=== PATIENT | female | born 1955 | race Caucasian/White ===

== ENCOUNTER → 2024-01-04 | Day surgery (SDC) | payer OTHER ==
[2024-01-03 13:19] LABS: Basophils # (auto) 0 10 ^3/uL (0-0.2); Basophils % (auto) 0.6 % (0.0-2.0); Eosinophils # (auto) 0.2 10 ^3/uL (0-0.8); Eosinophils % (auto) 2.8 % (0.0-7.0); Hematocrit 40.2 % (36.0-46.0); Lymphocytes # (auto) 0.9 10 ^3/uL (0.4-5.4); Lymphocytes % (auto) 12.5 % (10.0-50.0); Mean Corpuscular Hemoglobin 32.3 pg (28.0-32.0); Mean Corpuscular Hgb Conc. 34.8 g/dL (32.0-36.0); Mean Corpuscular Volume 92.8 fL (80.0-100.0); Monocytes # (auto) 0.4 10 ^3/uL (0-1.3); Monocytes % (auto) 5.7 % (0.0-12.0); Neutrophils # (auto) 5.5 10 ^3/uL (1.6-8.6); Neutrophils % (auto) 78.4 % (37.0-80.0); Nucleated Red Blood Cells % 0.1 %; Platelet Count (auto) 165 10^3/uL (140-450); Red Blood Cells 4.33 10^6/uL (4.0-5.20); Red Cell Distribution Width 13.9 % (11.8-14.3)
[2024-01-03 13:26] LABS: INR 0.97 (0.9-1.15); Partial Thromboplastin Time 27.4 SEC (24.5-34.5); Prothrombin Time 10.3 sec (9.3-11.8)
[2024-01-03 13:27] LABS: Alanine Aminotransferase 10 U/L (7-40); Albumin 4.5 g/dL (3.2-4.8); Alkaline Phosphatase 69 U/L (46-116); Anion Gap 5 (5-15); Aspartate Aminotransferase 11 U/L (13-40); Bilirubin, Total 0.4 mg/dL (0.2-1.0); Blood Urea Nitrogen 26 mg/dL (9-23); Carbon Dioxide 27 mmol/L (20-30); Chloride 107 mmol/L (98-107); Glucose 131 mg/dL (74-106); Sodium 139 mmol/L (136-145); Total Protein 7.6 g/dL (5.7-8.2)
[~2024-01-04] VITALS: Ht 160 cm; Wt 104.3 kg
[~2024-01-04] MED LIST: APIX2.5T PO; BUPIVACAINE 0.25% INJ 50ML VIAL ONE; BUPIVACAINE 0.5% P/F INJ 10 ML VIAL ONE; FAMOTIDINE (10MG/ML) 2ML VL IV ONE; GLYCOPYRROLATE 0.2 MG/ML 1ML VIAL ONE; HYDR12.59 PO; HYDROCORTISONE SOD SUCC 100 MG/2ML INJ VIAL ONE; IBUP-1453 PO; KETAMINE 50mg/ML 1ml syringe ONE; METF-370 PO; MIDAZOLAM HCL 2MG/2ML 2ml VIAL (1mg/ml) ONE; MORPHINE SULF PF 5 MG/10 ML VIAL ONE; ONDANSETRON HCL 4 MG/2 ML VIAL ONE; PHENYLEPHRINE HCL 10 MG/ML VL ONE; PROPOFOL 10 MG/ML 20 ML IV ONE; SITA25TA3 PO; TRANEXAMIC ACID 0 ML ONE; TRAZ-227 PO; VANCOMYCIN HCL 1000 MG VL ONE; ePHEDrine SULFATE 50 MG/ML AMP ONE; fentaNYL CITRATE 100 MCG/2 ML VL ONE
[2024-01-04 09:51] LABS: Urine Bacteria MOD /hpf (None Seen); Urine Blood Negative /uL (Negative); Urine Clarity Turbid (Clear); Urine Color Colorless (Yellow); Urine Protein, UAD Negative (Negative); Urine Specific Gravity 1.017 (1.001-1.035); Urine Urobilinogen Normal (Negative); Urine WBC 3 /hpf (0 - 5); Urine pH 5.5 (5.0-9.0)
== END | disposition home or self-care (01) ==
LOC: SUR 06:11
PROVIDERS: ATTEND Orthopaedic Surgery
DX: M17.12 Unilateral primary osteoarthritis, left knee (principal); Z53.8 Procedure and treatment not carried out for other reasons; I10 Essential (primary) hypertension; F17.210 Nicotine dependence, cigarettes, uncomplicated; E11.9 Type 2 diabetes mellitus without complications; E78.5 Hyperlipidemia, unspecified; Z98.890 Other specified postprocedural states; Z90.710 Acquired absence of both cervix and uterus; Z85.41 Personal history of malignant neoplasm of cervix uteri; Z82.49 Family history of ischemic heart disease and other diseases of the circulatory system; Z83.3 Family history of diabetes mellitus; Z88.8 Allergy status to other drugs, medicaments and biological substances; Z79.84 Long term (current) use of oral hypoglycemic drugs; Z79.899 Other long term (current) drug therapy
CPT/HCPCS: 36415; 80053; 81001; 85025; 85610; 85730; 86850; 86900; 86901; J1720; J2371; J2405; J2704; J3490; J2250

== ENCOUNTER 2024-01-14 15:40 | Inpatient (IN) | payer OTHER ==
[~2024-01-14] VITALS: Ht 177.8 cm; Wt 110.1 kg
[~2024-01-14 15:40] MED LIST changes: -BUPIVACAINE 0.25% INJ 50ML VIAL ONE; -BUPIVACAINE 0.5% P/F INJ 10 ML VIAL ONE; -FAMOTIDINE (10MG/ML) 2ML VL IV ONE; -GLYCOPYRROLATE 0.2 MG/ML 1ML VIAL ONE; -HYDROCORTISONE SOD SUCC 100 MG/2ML INJ VIAL ONE; -KETAMINE 50mg/ML 1ml syringe ONE; -MIDAZOLAM HCL 2MG/2ML 2ml VIAL (1mg/ml) ONE; -MORPHINE SULF PF 5 MG/10 ML VIAL ONE; -ONDANSETRON HCL 4 MG/2 ML VIAL ONE; -PHENYLEPHRINE HCL 10 MG/ML VL ONE; -PROPOFOL 10 MG/ML 20 ML IV ONE; -TRANEXAMIC ACID 0 ML ONE; -VANCOMYCIN HCL 1000 MG VL ONE; -ePHEDrine SULFATE 50 MG/ML AMP ONE; -fentaNYL CITRATE 100 MCG/2 ML VL ONE
[2024-01-14 15:55] VITALS: PULSE 83; RESP 20; O2SAT 100
[2024-01-14 16:33] LABS: Basophils # (auto) 0 10 ^3/uL (0-0.2); Basophils % (auto) 0.1 % (0.0-2.0); Eosinophils # (auto) 0 10 ^3/uL (0-0.8); Eosinophils % (auto) 0.1 % (0.0-7.0); Hematocrit 41.8 % (36.0-46.0); Hemoglobin 14.1 g/dL (12.2-16.2); Lymphocytes # (auto) 0.6 10 ^3/uL (0.4-5.4); Mean Corpuscular Hemoglobin 32.2 pg (28.0-32.0); Mean Corpuscular Hgb Conc. 33.8 g/dL (32.0-36.0); Mean Corpuscular Volume 95.2 fL (80.0-100.0); Monocytes # (auto) 0.6 10 ^3/uL (0-1.3); Monocytes % (auto) 5.4 % (0.0-12.0); Neutrophils # (auto) 10.8 10 ^3/uL (1.6-8.6); Neutrophils % (auto) 89.4 % (37.0-80.0); Platelet Count (auto) 154 10^3/uL (140-450); Red Blood Cells 4.39 10^6/uL (4.0-5.20); Red Cell Distribution Width 14.3 % (11.8-14.3); White Blood Cell 12.1 10^3/uL (4.4-10.8)
[2024-01-14 16:47] LABS: INR 1.08 (0.9-1.15); Partial Thromboplastin Time 27.9 SEC (24.5-34.5); Prothrombin Time 11.4 sec (9.3-11.8)
[2024-01-14 17:03] LABS: Alanine Aminotransferase 11 U/L (7-40); Alkaline Phosphatase 74 U/L (46-116); Anion Gap 15 (5-15); Aspartate Aminotransferase 21 U/L (13-40); Blood Alcohol < 3.0 mg/dL (<10); Blood Urea Nitrogen 13 mg/dL (9-23); Calcium 9.4 mg/dL (8.7-10.4); Carbon Dioxide 17 mmol/L (20-31); Chloride 110 mmol/L (98-107); Glucose 121 mg/dL (74-106); Magnesium 1.9 mg/dL (1.6-2.6); Potassium 4.1 mmol/L (3.5-5.1); Sodium 142 mmol/L (136-145)
[2024-01-14 17:04] LABS: Bilirubin, Total 0.6 mg/dL (0.2-1.0)
[2024-01-14 17:11] LABS: Lactic Acid w/Reflex 2.7 mmol/L (0.4-2.0)
[2024-01-14 17:14] LABS: Urine Bacteria MANY /hpf (None Seen); Urine Blood 2+ /uL (Negative); Urine Clarity Ex.Turbid (Clear); Urine Color Light-Orange (Yellow); Urine Mucus FEW (None Seen); Urine Protein, UAD 2+ (Negative); Urine Specific Gravity 1.027 (1.001-1.035); Urine Urobilinogen 3 mg/dL (Negative); Urine WBC 24 /hpf (0 - 5)
[2024-01-14 17:24] LABS: Amphetamine Screen, Urine Neg (NEGATIVE); Benzodiazephine Screen, Urine Neg (NEGATIVE)
[2024-01-14 17:25] LABS: Barbiturate Scree,Urine Neg (NEGATIVE); Cannabinoid Screen, Urine Neg (NEGATIVE); Cocaine Screen, Urine Neg (NEGATIVE); Opiate Scree,Urine Neg (NEGATIVE); Phencyclidine Screen, Urine Neg (NEGATIVE)
[2024-01-14] MEDS: SODIUM CHLORIDE 0.9% 1,000 ML IV ONE (17:31)
[2024-01-14] MEDS: cefTRIAXone 1GM/50ML D5W 50 ML IV ONE (17:31)
[2024-01-14 20:00] VITALS: PULSE 94; RESP 21; O2SAT 96
[2024-01-14] MEDS ORDERED: ACETAMINOPHEN 325 MG TAB PO PRN (21:15)
[2024-01-14] MEDS ORDERED: HYDROcodone-ACET 5/325MG TAB PO PRN (21:15)
[2024-01-14] MEDS ORDERED: ONDANSETRON HCL 4 MG/2 ML VIAL IV PRN (21:15)
[2024-01-14] MEDS ORDERED: DOCUSATE SOD 100 MG CAP PO PRN (21:15)
[2024-01-14] MEDS ORDERED: DEXTROSE (50%) 50ML SYRG IV PRN (21:15)
[2024-01-14] MEDS ORDERED: NITROGLYCERIN 0.4 MG SL TAB SL PRN (22:00)
[2024-01-14] MEDS: APIXABAN 2.5 MG TAB PO SCH (22:00)
[2024-01-14] MEDS ORDERED: MORPHINE SULFATE INJ 2 MG/ml SYRG IV PRN (22:00)
[2024-01-14] MEDS: SODIUM CHLOR 0.9% PF (SALINE LOCK) 10ML VIAL/SYR IV SCH (22:22)
[2024-01-14] MEDS: LACTATED RINGER'S 500 ML IV ONE (22:29)
[2024-01-15] MEDS: InsuLIN REG 1unit/0.01ml Soln (100units/ml) SC SCH
[2024-01-15] MEDS: ACCU-CHEK COMFORT CURVE STRIP VI SCH (00:15)
[2024-01-15] MEDS: hydrALAZINE HCL 20 MG/ML VL IV PRN (03:30)
[2024-01-15 04:51] LABS: Basophils # (auto) 0 10 ^3/uL (0-0.2); Basophils % (auto) 0.4 % (0.0-2.0); Eosinophils # (auto) 0.1 10 ^3/uL (0-0.8); Eosinophils % (auto) 0.9 % (0.0-7.0); Hematocrit 41.3 % (36.0-46.0); Hemoglobin 14.2 g/dL (12.2-16.2); Lymphocytes # (auto) 0.8 10 ^3/uL (0.4-5.4); Mean Corpuscular Hemoglobin 31.8 pg (28.0-32.0); Mean Corpuscular Hgb Conc. 34.4 g/dL (32.0-36.0); Mean Corpuscular Volume 92.4 fL (80.0-100.0); Monocytes # (auto) 0.5 10 ^3/uL (0-1.3); Monocytes % (auto) 5.8 % (0.0-12.0); Neutrophils # (auto) 7.7 10 ^3/uL (1.6-8.6); Neutrophils % (auto) 83.9 % (37.0-80.0); Nucleated Red Blood Cells % 0.1 %; Platelet Count (auto) 174 10^3/uL (140-450); Red Blood Cells 4.47 10^6/uL (4.0-5.20); White Blood Cell 9.2 10^3/uL (4.4-10.8)
[2024-01-15 05:21] LABS: Alanine Aminotransferase 12 U/L (7-40); Albumin 3.8 g/dL (3.2-4.8); Alkaline Phosphatase 74 U/L (46-116); Anion Gap 15 (5-15); Aspartate Aminotransferase 21 U/L (13-40); BUN/Creatinine Ratio 20.4 (10.0-20.0); Bilirubin, Total 0.6 mg/dL (0.2-1.0); Blood Urea Nitrogen 21 mg/dL (9-23); Calcium 9.5 mg/dL (8.7-10.4); Carbon Dioxide 16 mmol/L (20-31); Chloride 112 mmol/L (98-107); Glucose 126 mg/dL (74-106); Potassium 3.8 mmol/L (3.5-5.1); Sodium 143 mmol/L (136-145); Total Protein 6.3 g/dL (5.7-8.2)
[2024-01-15] MEDS: cefTRIAXone 1GM/50ML D5W 50 ML IV SCH (09:05)
[2024-01-15] MEDS: ENOXAPARIN SOD 40 MG/0.4 ML SYRINGE SC ONE (14:06)
[2024-01-15] MEDS: ASPirin 325 MG TAB PO ONE (15:20)
[2024-01-15 19:25] VITALS: PULSE 84; RESP 20; O2SAT 96
[2024-01-15 21:00] VITALS: BP 156/70; PULSE 86; RESP 18; TEMP 98.3; O2SAT 97
[2024-01-15] MEDS: ATORVASTATIN 20 MG TAB PO SCH (22:41)
[2024-01-15 22:42] VITALS: PULSE 86; RESP 18; O2SAT 97
[2024-01-15] MEDS: ENOXAPARIN SOD 40 MG/0.4 ML SYRINGE SC SCH (22:42)
[2024-01-15] MEDS ORDERED: EMPA1TAB PO (23:16)
[2024-01-15] MEDS ORDERED: [UNRECOGNIZED DRUG - CODE] PO (23:16)
[2024-01-15] MEDS ORDERED: FENO54TA4 PO (23:16)
[2024-01-16] VITALS (7 sets, daily range): BP systolic 145–154; BP diastolic 37–81; PULSE 63–90; RESP 17–22; TEMP 98.1–99.9; O2SAT 91–97
[2024-01-16 08:07] LABS: Basophils # (auto) 0 10 ^3/uL (0-0.2); Basophils % (auto) 0.4 % (0.0-2.0); Eosinophils # (auto) 0.2 10 ^3/uL (0-0.8); Eosinophils % (auto) 2.6 % (0.0-7.0); Hematocrit 38.7 % (36.0-46.0); Hemoglobin 13.4 g/dL (12.2-16.2); Lymphocytes # (auto) 0.7 10 ^3/uL (0.4-5.4); Mean Corpuscular Hemoglobin 32.3 pg (28.0-32.0); Mean Corpuscular Hgb Conc. 34.6 g/dL (32.0-36.0); Mean Corpuscular Volume 93.4 fL (80.0-100.0); Monocytes # (auto) 0.4 10 ^3/uL (0-1.3); Monocytes % (auto) 5.7 % (0.0-12.0); Neutrophils # (auto) 5.5 10 ^3/uL (1.6-8.6); Neutrophils % (auto) 81.3 % (37.0-80.0); Nucleated Red Blood Cells % 0.2 %; Platelet Count (auto) 167 10^3/uL (140-450); Red Blood Cells 4.15 10^6/uL (4.0-5.20); Red Cell Distribution Width 14.1 % (11.8-14.3); White Blood Cell 6.8 10^3/uL (4.4-10.8)
[2024-01-16 08:09] LABS: Anion Gap 12 (5-15); Carbon Dioxide 20 mmol/L (20-31); Chloride 114 mmol/L (98-107); Potassium 3.2 mmol/L (3.5-5.1); Sodium 146 mmol/L (136-145)
[2024-01-16 08:10] LABS: Calcium 9.7 mg/dL (8.7-10.4)
[2024-01-16 08:15] LABS: BUN/Creatinine Ratio 18.3 (10.0-20.0); Blood Urea Nitrogen 19 mg/dL (9-23); Glucose 122 mg/dL (74-106)
[2024-01-16 08:41] LABS: Triglycerides 196 mg/dL (< 150)
[2024-01-16 08:42] LABS: LDL Cholesterol 94 mg/dL (< 100)
[2024-01-16 08:43] LABS: Cholesterol 160 mg/dL (< 200); HDL Cholesterol 33 mg/dL (40-59)
[2024-01-16] MEDS: ASPirin 81 mg TAB PO SCH (08:43)
[2024-01-16] MEDS: POTASSIUM CHLORIDE 60 MEQ, LIDOCAINE 1% (LOCAL ANESTH.) 6 ML in SODIUM CHL 0.9% 500 ML IV ONE (08:45)
[2024-01-16] MEDS: ACETAMINOPHEN 325 MG TAB PO SCH (16:45)
[2024-01-16] MEDS: Ensure HIGH Protein Chocolate 8oz Bottle PO SCH (19:06)
[2024-01-17] VITALS (8 sets, daily range): BP systolic 138–144; BP diastolic 46–67; PULSE 68–81; RESP 18–20; TEMP 97.5–98.4; O2SAT 91–96
[2024-01-17 07:17] LABS: Basophils # (auto) 0 10 ^3/uL (0-0.2); Basophils % (auto) 0.5 % (0.0-2.0); Eosinophils # (auto) 0.3 10 ^3/uL (0-0.8); Eosinophils % (auto) 4.5 % (0.0-7.0); Hematocrit 35.7 % (36.0-46.0); Hemoglobin 12.5 g/dL (12.2-16.2); Lymphocytes # (auto) 0.9 10 ^3/uL (0.4-5.4); Lymphocytes % (auto) 15.3 % (10.0-50.0); Mean Corpuscular Hemoglobin 32.6 pg (28.0-32.0); Mean Corpuscular Hgb Conc. 34.9 g/dL (32.0-36.0); Mean Corpuscular Volume 93.3 fL (80.0-100.0); Monocytes # (auto) 0.4 10 ^3/uL (0-1.3); Monocytes % (auto) 6.4 % (0.0-12.0); Neutrophils # (auto) 4.3 10 ^3/uL (1.6-8.6); Neutrophils % (auto) 73.3 % (37.0-80.0); Platelet Count (auto) 166 10^3/uL (140-450); Red Blood Cells 3.83 10^6/uL (4.0-5.20); Red Cell Distribution Width 14.1 % (11.8-14.3); White Blood Cell 5.9 10^3/uL (4.4-10.8)
[2024-01-17 07:41] LABS: Alanine Aminotransferase 10 U/L (7-40); Albumin 3.6 g/dL (3.2-4.8); Alkaline Phosphatase 61 U/L (46-116); Anion Gap 9 (5-15); Aspartate Aminotransferase 14 U/L (13-40); BUN/Creatinine Ratio 19.8 (10.0-20.0); Bilirubin, Total 0.4 mg/dL (0.2-1.0); Blood Urea Nitrogen 19 mg/dL (9-23); Calcium 9.7 mg/dL (8.7-10.4); Carbon Dioxide 21 mmol/L (20-31); Chloride 116 mmol/L (98-107); Glucose 134 mg/dL (74-106); Potassium 3.6 mmol/L (3.5-5.1); Sodium 146 mmol/L (136-145); Total Protein 6.3 g/dL (5.7-8.2)
[2024-01-17] MEDS: ATORVASTATIN 20 MG TAB PO SCH (09:46)
[2024-01-17] MEDS ORDERED: hydrALAZINE HCL 20 MG/ML VL IV PRN (11:45)
[2024-01-17] MEDS: amLODIPine BESYLATE 5 MG TAB PO ONE (11:45)
[2024-01-17] MEDS ORDERED: IOHEXOL 350 MG/ML 100ML IJ ONE (15:15)
[2024-01-18 01:00] VITALS: BP 135/47; PULSE 20; PULSE 96; RESP 20; TEMP 97.7; O2SAT 95
[2024-01-18 05:00] VITALS: BP 157/57; PULSE 75; RESP 20; TEMP 97.4; O2SAT 95
[2024-01-18 07:38] LABS: Calcium 9.7 mg/dL (8.7-10.4); Chloride 113 mmol/L (98-107); Potassium 3.7 mmol/L (3.5-5.1); Sodium 143 mmol/L (136-145)
[2024-01-18 07:39] LABS: Anion Gap 8 (5-15); Basophils # (auto) 0 10 ^3/uL (0-0.2); Basophils % (auto) 0.6 % (0.0-2.0); Carbon Dioxide 22 mmol/L (20-31); Eosinophils # (auto) 0.3 10 ^3/uL (0-0.8); Eosinophils % (auto) 4.4 % (0.0-7.0); Hematocrit 36.8 % (36.0-46.0); Hemoglobin 12.6 g/dL (12.2-16.2); Lymphocytes # (auto) 0.9 10 ^3/uL (0.4-5.4); Lymphocytes % (auto) 14.9 % (10.0-50.0); Mean Corpuscular Hgb Conc. 34.2 g/dL (32.0-36.0); Mean Corpuscular Volume 93.5 fL (80.0-100.0); Monocytes # (auto) 0.4 10 ^3/uL (0-1.3); Monocytes % (auto) 6.1 % (0.0-12.0); Neutrophils # (auto) 4.3 10 ^3/uL (1.6-8.6); Nucleated Red Blood Cells % 0.1 %; Platelet Count (auto) 154 10^3/uL (140-450); Red Blood Cells 3.94 10^6/uL (4.0-5.20); Red Cell Distribution Width 13.9 % (11.8-14.3); White Blood Cell 5.8 10^3/uL (4.4-10.8)
[2024-01-18 07:44] LABS: BUN/Creatinine Ratio 18.9 (10.0-20.0); Blood Urea Nitrogen 17 mg/dL (9-23); Glucose 132 mg/dL (74-106)
[2024-01-18 08:00] VITALS: PULSE 75
[2024-01-18 09:00] VITALS: BP_SYST 170; BP_SYST 184; BP_DIAS 62; BP_DIAS 66; PULSE 74; PULSE 75; RESP 24; TEMP 98.2; O2SAT 95
[2024-01-18] MEDS: amLODIPine BESYLATE 5 MG TAB PO SCH (09:17)
[2024-01-18] MEDS ORDERED: CEFP200T15 PO (11:16)
[2024-01-18] MEDS ORDERED: ASPI-325 PO (11:16)
[2024-01-18] MEDS ORDERED: ATOR20TA50 PO (11:16)
[2024-01-18 13:00] VITALS: BP 161/71; PULSE 72; RESP 22; TEMP 98.2; O2SAT 95
[2024-01-18 17:00] VITALS: BP 110/37; PULSE 63; RESP 18; TEMP 97.4; O2SAT 93
== END 2024-01-18 19:20 | disposition hospice, home (50) | DRG 64 ==
LOC: EDBD 15:40 → EDUNIT# 15:40 → ER 15:40 → TELE-CENTR 21:55 → TELE 21:55 → TELE-CENTR 01-15 21:32 → CENTRAL 01-18 15:29
PROVIDERS: ADMIT Internal Medicine; ATTEND Internal Medicine
DX: I63.512 Cerebral infarction due to unspecified occlusion or stenosis of left middle cerebral artery (principal); G93.41 Metabolic encephalopathy; N39.0 Urinary tract infection, site not specified; G81.91 Hemiplegia, unspecified affecting right dominant side; I45.2 Bifascicular block; E87.20 Acidosis, unspecified; R62.7 Adult failure to thrive; Z51.5 Encounter for palliative care; R47.01 Aphasia; F17.210 Nicotine dependence, cigarettes, uncomplicated; E11.22 Type 2 diabetes mellitus with diabetic chronic kidney disease; E78.5 Hyperlipidemia, unspecified; N18.9 Chronic kidney disease, unspecified; J44.9 Chronic obstructive pulmonary disease, unspecified; E66.01 Morbid (severe) obesity due to excess calories; I12.9 Hypertensive chronic kidney disease with stage 1 through stage 4 chronic kidney disease, or unspecified chronic kidney disease; Z96.651 Presence of right artificial knee joint; Z79.899 Other long term (current) drug therapy; Z79.82 Long term (current) use of aspirin; Z79.01 Long term (current) use of anticoagulants; Z90.49 Acquired absence of other specified parts of digestive tract; Z90.710 Acquired absence of both cervix and uterus; Z86.718 Personal history of other venous thrombosis and embolism; Z82.49 Family history of ischemic heart disease and other diseases of the circulatory system; Z83.3 Family history of diabetes mellitus; Z79.4 Long term (current) use of insulin; Z68.30 Body mass index [BMI] 30.0-30.9, adult
CPT/HCPCS: 36415; 70450; 70498; 70551; 71045; 80048; 80053; 80061; 80307; 80320; 81001; 82962; 83036; 83605; 83735; 83880; 84484; 85025; 85610; 85730; 87040; 87086; 87088; 87186; 92507; 92610; 93306; 93886; 93970; 95819; 96361; 96365; 96366; 96372; 97110; 97163; 97530; G0378; J1815; J2001

== ENCOUNTER 2025-03-20 23:15 | Inpatient (IN) | payer MEDICARE, OTHER ==
[~2025-03-20] VITALS: Ht 165.1 cm; Wt 78.8 kg
[~2025-03-20 23:15] MED LIST changes: +ASPI-325 PO; +ATOR20TA50 PO; +CEFP200T15 PO; +EMPA1TAB PO; +FENO54TA4 PO; +[UNRECOGNIZED DRUG - CODE] PO
[2025-03-20 23:45] VITALS: PULSE 106; RESP 19; O2SAT 97
[2025-03-20 23:58] LABS: Hematocrit 37.7 % (36.0-46.0); Hemoglobin 12.8 g/dL (12.2-16.2); Mean Corpuscular Hemoglobin 30.6 pg (28.0-32.0); Mean Corpuscular Volume 90.5 fL (80.0-100.0); Nucleated Red Blood Cells % 0.0 %
[2025-03-21 00:19] LABS: INR 1.11 (0.9-1.15); Partial Thromboplastin Time 27.6 SEC (24.5-34.5); Prothrombin Time 11.6 sec (9.3-11.8)
[2025-03-21] MEDS: ACETAMINOPHEN IV 1000 MG/100ML (10MG/ML) IV ONE (00:19)
--- NOTE | 2025-03-21 00:25 | DVH ---
EXAM: CT STROKE CTH INDICATION: aloc, aphasia TECHNIQUE: CT of the head without intravenous contrast. Radiation Dose Information: CT Dose: CTDI volume is 54.14 mGy. Dose-length product is 958.75 mGy*cm The dose indicators for CT are the volume Computed Tomography (CT) Dose Index (CTDIvol) and the Dose Length Product (DLP), and are measured in units of mGy and mGy-cm, respectively. These indicators are not patient dose, but values generated from the CT scanner acquisition factors. The report includes radiation exposure data for exposures received during this examination. COMPARISON: CT CT ANGIO NECK CONTRAST on DOS: 01/17/24, CT HEAD WITHOUT CONTRAST on DOS: 01/16/24, MRI BRAIN HEAD WO CONTRAST on DOS: 01/15/24, US CAROTID DUPLX W COLOR DOP on DOS: 01/15/24, CT HEAD WITHOUT CONTRAST on DOS: 01/14/24 FINDINGS: Motion artifact degrades fine detail. There are chronic infarcts within the left parietal lobe, seth radiata / basal ganglia, and right parietal lobe. There is ex vacuo dilatation of the left lateral ventricle. No acute territorial infarct, intracranial hemorrhage, or mass effect. There are global involutional changes with compensatory prominence of the ventricles and sulci. Patchy periventricular and subcortical white matter hypoattenuation is nonspecific but may be related to small vessel ischemic disease. The orbits are normal. The there is Small fluid within the mastoid air cells. The paranasal sinuses are clear. The osseous structures are unremarkable. IMPRESSION: 1. No acute territorial infarct, intracranial hemorrhage, or mass effect. 2. Age-related involutional changes. Chronic ischemic changes as detailed. 3. If clinical symptoms persist, MRI may be beneficial in further evaluation.
[2025-03-21 00:32] LABS: Alanine Aminotransferase 14 U/L (7-40); Albumin 3.9 g/dL (3.2-4.8); Alkaline Phosphatase 53 U/L (46-116); Anion Gap 14 (5-15); BUN/Creatinine Ratio 16.5 (10.0-20.0); Bilirubin, Total 0.6 mg/dL (0.2-1.0); Calcium 9.3 mg/dL (8.7-10.4); Carbon Dioxide 22 mmol/L (20-31); Chloride 105 mmol/L (98-107); Potassium 4.1 mmol/L (3.5-5.1); Sodium 141 mmol/L (136-145); Total Protein 7.1 g/dL (5.7-8.2)
[2025-03-21 00:42] LABS: Blood Urea Nitrogen 46 mg/dL (9-23); Glucose 133 mg/dL (74-106); Lactic Acid w/Reflex 2.3 mmol/L (0.4-2.0)
[2025-03-21] MEDS: SODIUM CHLORIDE 0.9% 2,000 ML IV ONE (01:06)
[2025-03-21] MEDS: VANCOMYCIN 1GM/250ML KIT 250 ML IV ONE (01:21)
[2025-03-21 01:30] LABS: Urine Protein, UAD 2+ (Negative); Urine WBC Clumps PRESENT /hpf (None Seen)
--- NOTE | 2025-03-21 02:17 | ED.PDOC ---
Altered Mental Status HPI Comments 70-year-old female brought in by EMS. Patient lives at a [facility] facility. Per EMS patient's last known normal was approximately 8 hours ago. The called 911 because staff was concerned patient may be having a stroke. Patient has a history of strokes. Last drink was one year ago with right-sided deficits which left patient bed-bound. They were also concerned of possible urinary tract infection. Patient where his diaper, no Hutton catheter. Staff state that over the last 6-8 hours patient has been nonverbal. Patient follows simple commands with left hand. But can not verbalize/communicate. Chief Complaint: Stroke Time Seen by MD: 23:33 Primary Care Provider: UNKNOWN Reviewed Notes: Nurses Notes Allergies: Coded Allergies: Evolocumab (Verified Allergy, Intermediate, Hives, 01/03/24) Furosemide (Verified Allergy, Intermediate, Blisters, 01/03/24) Mouse Protein (Verified Allergy, Intermediate, Hives, 01/03/24) Home Meds Active Scripts Cefpodoxime Proxetil (Cefpodoxime Proxetil) 200 Mg Tab, 1 TAB PO BID for 2 Days, #4 TAB Prov:RUPINDER CAMPBELL RESIDENT 01/18/24 Atorvastatin Calcium (ATORVASTATIN CALCIUM) 20 Mg Tab, 40 MG PO HS for 30 Days, #60 TAB 2 Refills Prov:RUPINDER CAMPBELL RESIDENT 01/18/24 Aspirin (Aspirin Low Dose) 81 Mg Tab, 81 MG PO DAILY for 30 Days, #30 TAB 2 Refills Prov:RUPINDER CAMPBELL RESIDENT 01/18/24 Reported Medications Amlodipine Benzoate (Katerzia) 1 Mg/Ml Dee [place], 5 MG PO DAILY, ML 01/15/24 Fenofibrate (Fenofibrate) 54 Mg Tab, 48 MG PO DAILY, TAB 01/15/24 Empagliflozin (Jardiance) 10 Mg Tab, 10 MG PO DAILY, TAB 01/15/24 Ibuprofen (Ibuprofen) 400 Mg Tab, 400 MG PO, MG 01/03/24 Apixaban Base (ELIQUIS) 2.5 Mg Tab, 2.5 MG PO BID, TAB 01/03/24 Trazodone Hcl (Trazodone Hcl) 50 Mg Tab, 50 MG PO, MG 01/03/24 Sitagliptin Phosphate (Januvia) 25 Mg Tab, 25 MG PO, TAB 01/03/24 Hydrochlorothiazide (Hydrochlorothiazide) 12.5 Mg Cap, 12.5 MG PO DAILY for 30 Days, MG 01/03/24 Metformin Hydrochloride (Metformin Hcl) 500 Mg Tab, 500 MG PO DAILY for 30 Days, MG 01/03/24 Information Source: Patient Mode of Arrival: EMS Past Medical History PAST MEDICAL HISTORY: CKF, High Lipids, HTN Surgical History: Appendectomy, Cholecystectomy, Hysterectomy, Tonsillectomy IT PROJECT LEAD History: No Pertinent IT PROJECT LEAD History Family History Family History: No family hx of Heart noé Social History Smoker: Cigarettes, Less Than 1 Pack/Day Alcohol: Occasionally Drugs: Denies Drug Use Lives In: Home Unable to Obtain due to: Altered Mental Status Physical Exam General Appearance: Moderate Distress HEENT: PERRL/EOMI, Pharynx Normal Neck: Normal Respiratory: Chest Non-Tender, Lungs Clear, No Accessory Muscle Use, No Respiratory Distress, Normal Breath Sounds Cardiovascular: No Edema, No JVD, No Murmur, No Gallop, Normal Peripheral Pulses, Regular Rate/Rhythm Breast Exam: Deferred Gastrointestinal: No Organomegaly, Non Tender, No Pulsatile Mass, Normal Bowel Sounds, Soft Genitalia: Deferred Pelvic: Deferred Rectal: Rectal Exam not done Extremities: NOT DONE Neurologic: Aphasia, Sensory Deficit Cerebellar Function: NOT DONE Reflexes: NOT DONE Skin: NOT DONE Peripheral Pulses: 2+ carotid (R), 2+ carotid (L) Lymphatic: NOT DONE Was a procedure done? Was a procedure done?: No Differential Diagnosis (ALOC) Differential Diagnosis: Dehydration, Hypoglycemia, Meningitis, Sepsis, Hypoxemia, Seizure, Closed Head Injury, CVA X-Ray, Labs, Meds, VS Vital Signs Date Time Temp Pulse Resp B/P (MAP) Pulse Ox O2 Delivery O2 Flow Rate FiO2 03/20/25 23:49 102 03/20/25 23:47 99.0 106 19 126/40 (68) 97 99.0 03/20/25 23:45 106 19 97 Room Air* 0 21 03/20/25 23:15 99.2 92 16 107/57 98 99.2 Lab Test 03/21/25 01:31 03/21/25 01:00 03/21/25 00:39 03/21/25 00:05 Range/Units Lactic Acid Level 1.7 0.4-2.0 mmol/L Urine Color Whiteside H Yellow Urine Clarity Ex.turbid Clear Urine pH 6.0 5.0-9.0 Urine Specific [place] 1.025 1.001-1.035 Urine Protein 2+ H Negative Urine Ketones Trace Negative Urine Blood 2+ H Negative /uL Urine Nitrite Negative Negative Urine Bilirubin Negative Negative Urine Urobilinogen 2 H Negative mg/dL Urine Leukocyte Esterase 3+ Negative /uL Urine RBC 140 0 - 4 /hpf Urine WBC Clumps Present None Seen /hpf Urine Microscopic WBC 2850 H 0-5 /HPF Urine Squamous Epithelial Cells Few <5 /hpf Urine Bacteria Mod H None Seen /hpf Urine Mucus Few None Seen Urine Glucose Normal Normal mg/dL Urine Opiates Screen Pending Urine Fentanyl Screen Pending Urine Barbiturates Screen Pending Urine Phencyclidine Screen Pending Urine Amphetamines Screen Pending Urine Benzodiazepines Screen Pending Urine Cocaine Screen Pending Urine Cannabinoids Screen Pending Troponin I High Sensitivity 12 </=34 ng/L POC Glucose 140 H 70-106 mg/dl Test 03/20/25 23:49 Range/Units White Blood Count 9.5 4.4-10.8 10^3/uL Red Blood Count 4.17 4.0-5.20 10^6/uL Hemoglobin 12.8 12.2-16.2 g/dL Hematocrit 37.7 36.0-46.0 % Mean Corpuscular Volume 90.5 80.0-100.0 fL Mean Corpuscular Hemoglobin 30.6 28.0-32.0 pg Mean Corpuscular Hemoglobin Concent 33.9 32.0-36.0 g/dL Red Cell Distribution Width 14.1 11.8-14.3 % Platelet Count 218 140-450 10^3/uL Mean Platelet Volume 8.0 6.9-10.8 fL Neutrophils (%) (Auto) 86.9 H 37.0-80.0 % Lymphocytes (%) (Auto) 8.1 L 10.0-50.0 % Monocytes (%) (Auto) 4.7 0.0-12.0 % Eosinophils (%) (Auto) 0.1 0.0-7.0 % Basophils (%) (Auto) 0.2 0.0-2.0 % Neutrophils # (Auto) 8.2 1.6-8.6 10 ^3/uL Lymphocytes # (Auto) 0.8 0.4-5.4 10 ^3/uL Monocytes # (Auto) 0.4 0-1.3 10 ^3/uL Eosinophils # (Auto) 0 0-0.8 10 ^3/uL Basophils # (Auto) 0 0-0.2 10 ^3/uL Nucleated Red Blood Cells 0.0 % Prothrombin Time 11.6 9.3-11.8 sec Prothrombin Time INR 1.11 0.9-1.15 Activated Partial Thromboplast Time 27.6 24.5-34.5 SEC D-Dimer, Quantitative 2.19 H 0.0-0.49 mg/L FEU Sodium Level 141 136-145 mmol/L Potassium Level 4.1 3.5-5.1 mmol/L Chloride Level 105 98-107 mmol/L Carbon Dioxide Level 22 20-31 mmol/L Anion Gap 14 5-15 Blood Urea Nitrogen 46 H 9-23 mg/dL Creatinine 2.78 H 0.550-1.02 mg/dL Glomerular Filtration Rate Calc 18 >90 mL/min BUN/Creatinine Ratio 16.5 10.0-20.0 Serum Glucose 133 H 74-106 mg/dL Lactic Acid Level 2.3 *H 0.4-2.0 mmol/L Calcium Level 9.3 8.7-10.4 mg/dL Total Bilirubin 0.6 0.2-1.0 mg/dL Aspartate Amino Transferase (AST) 25 13-40 U/L Alanine Aminotransferase (ALT) 14 7-40 U/L Alkaline Phosphatase 53 46-116 U/L Troponin I High Sensitivity 14 </=34 ng/L Total Protein 7.1 5.7-8.2 g/dL Albumin 3.9 3.2-4.8 g/dL Current Medications Medications (Trade) Dose Ordered Sig/Jatin Route Start Time Stop Time Status Last Admin Acetaminophen (Ofirmev) 1,000 mg ONCE ONCE IV 03/21/25 00:15 03/21/25 00:16 DC 03/21/25 00:19 Sodium Chloride 2,000 ml @ 1,000 mls/hr Q2H ONCE IV 03/21/25 00:45 03/21/25 02:44 03/21/25 01:06 Ceftriaxone Sodium 50 ml @ 100 mls/hr ONCE ONCE IV 03/21/25 00:45 03/21/25 01:14 DC 03/21/25 01:06 Vancomycin HCl 250 ml @ 250 mls/hr ONCE ONCE IV 03/21/25 00:45 03/21/25 01:44 DC 03/21/25 01:21 X-Ray, Labs, Meds, VS Comment Patient had initial elevated lactic acid, CT head was negative for mass effect/stroke Patient had fever 101, given Tylenol 1 g Concerns of urosepsis causing metabolic encephalopathy Patient given 1 g Rocephin and 1 g of vancomycin Patient is started with 2 L in his bolus Repeat lactic acid had improved Patient is still nonverbal Time of 1ST Reevaluation: 02:15 Reevaluation 1ST: Unchanged Patient Education/Counseling: Diagnosis, Treatment Family Education/Counseling: Diagnosis, Treatment SEPSIS Sepsis Screen Date sepsis recognized/suspect: Mar 20, 2025 Time Sepsis recognized/suspect: 2344 Recent Procedure: No On Antibiotic Therapy: No Respiratory Rate >20: No Heart Rate >90: Yes Temp<36 C (96.8 F) or >38.3 C: Yes SBP <90 or MAP <65 mmHG: No New Acute Mental Status Change: Yes Is the patient on CPAP, BIPAP,: No Physician Orders Drug Screen (03/20/25 23:27) Ct Head Cva (03/20/25 23:27) Troponin-I Hs (03/21/25 02:27) Blood Culture (03/20/25 23:58) Insert Hutton Catheter QSHIFT (03/21/25 00:11) Electrocardigram (03/21/25 00:43) Sodium Chloride 0.9% (03/21/25 00:45) Vital Signs Date Time Temp Pulse Resp B/P (MAP) Pulse Ox O2 Delivery O2 Flow Rate FiO2 03/20/25 23:49 102 03/20/25 23:47 99.0 106 19 126/40 (68) 97 99.0 03/20/25 23:45 106 19 97 Room Air* 0 21 03/20/25 23:15 99.2 92 16 107/57 98 99.2 Laboratory Tests Test 03/20/25 23:49 03/21/25 01:31 Lactic Acid Level 2.3 mmol/L (0.4-2.0) *H 1.7 mmol/L (0.4-2.0) White Blood Count 9.5 10^3/uL (4.4-10.8) Medications Medications Dose Ordered Sig/Jatin Route Start Time Stop Time Status Last Admin Dose Admin Acetaminophen 1,000 mg ONCE ONCE IV 03/21/25 00:15 03/21/25 00:16 DC 03/21/25 00:19 Ceftriaxone Sodium 50 ml @ 100 mls/hr ONCE ONCE IV 03/21/25 00:45 03/21/25 01:14 DC 03/21/25 01:06 Sodium Chloride 2,000 ml @ 1,000 mls/hr Q2H ONCE IV 03/21/25 00:45 03/21/25 02:44 03/21/25 01:06 Vancomycin HCl 250 ml @ 250 mls/hr ONCE ONCE IV 03/21/25 00:45 03/21/25 01:44 DC 03/21/25 01:21 Departure 1 Departure Time of Disposition: 02:14 Impression: Primary Impression: UTI (urinary tract infection) Qualified Codes: N30.00 - Acute cystitis without hematuria Additional Impression: Altered mental status Qualified Codes: R41.0 - Disorientation, unspecified Disposition: ADMITTED INPATIENT Condition: Guarded Critical Care Note Critical Care Time?: Yes (35 min-critical care time only) Critical care comment: I have personally spent 35 minutes of critical care time, exclusive of the time spent on any procedures, in evaluation and management of this critically ill patient's conditions. I provided the following cleared of care treatment: Neuro assessments, spoke with blue koko, on-call neurologist, stat CT scan placed in rapid this provided, no obvious mass effect. Stability Stability form required: No Heart Score Heart Score: Heart Score Response (Comments) Value History N/A 0 EKG N/A 0 Age N/A 0 Risk Factors N/A 0 Troponin N/A 0 Total 0 DELMAR LOYA REHANGER Mar 21, 2025 02:17
[2025-03-21 03:43] LABS: Amphetamine Screen, Urine Neg (NEGATIVE); Benzodiazephine Screen, Urine Neg (NEGATIVE); Opiate Scree,Urine Neg (NEGATIVE); Phencyclidine Screen, Urine Neg (NEGATIVE)
[2025-03-21 03:44] LABS: Cannabinoid Screen, Urine Neg (NEGATIVE); Cocaine Screen, Urine Neg (NEGATIVE)
[2025-03-21] MEDS ORDERED: DEXTROSE (50%) 50ML SYRG IV PRN (04:00)
[2025-03-21] MEDS ORDERED: MEROPENEM 1GM IVPB 50 ML IV ONE (04:00)
[2025-03-21] MEDS ORDERED: ONDANSETRON HCL 4 MG/2 ML VIAL IV PRN (04:00)
--- NOTE | 2025-03-21 04:08 | DVHHPRES ---
History of Present Illness Resident Creating Document: DON CARRERO RESIDENT History of Present Illness This is a 70-year-old female with past medical history of hypertension, DVT, HLD, dm 2, insomnia depression brought from [facility] due to nursing staff concern of stroke. Patient history of stroke 1 year ago with right-sided weakness and placed hospice care but re-evaluated approximately 6 months ago and revoked hospice. As per EMS record, long-term staff suddenly noticed patient not talking or responding in verbal command 8 hour before admission. No history of fall or trauma. Patient was bed-bound since her last stroke and on physical therapy. During evaluation in ER, brother(Lucas) in bedside reported patient current condition in her baseline. Patient follow verbal command but speech not clear which is not new. Patient received IV fluid and antibiotic in ER. Currently patient denies any SOB, chest pain, headache, diarrhea or any other acute distress. Last admission on 01/18/2024: CT head showed chronic left basal ganglia and right occipital parietal region infarct. CT chest showed pulmonary vascular congestion and atelectasis. History of DVT, was on Eliquis 2.5 mg b.i.d. at home according to our record. Neurology consult on January 18, 2024 recommended continue aspirin Lipitor and Lovenox. Past medical history: As above Surgical history: Appendectomy, Cholecystectomy, Hysterectomy, Tonsillectomy Family history: Nothing contributory Personal: Ex-smoker, quit drinking workup for few years, no illicit drug use PCP: Unable to recall name Allergy: Lasix, mouse protein, evulocumab. Home meds: Amlodipine, apixaban, aspirin, atorvastatin, empagliflozin, fenofibrate hydrochlorothiazide, IV 0, metformin, sitagliptin, trazodone. Metformin Review of Systems Constitutional: Yes: Weakness, Malaise; No: Fever, Chills, Sweats, Other Eyes: No: Pain, Vision change, Conjunctivae inflammation, Eyelid inflammation, Other, Redness ENT: No: Ear pain, Ear discharge, Nose pain, Nose discharge, Nose congestion, Mouth pain, Mouth swelling, Throat pain, Throat swelling, Other Respiratory: No: Cough, Dry, Shortness of breath, SOB with excertion, Wheezing, Hemoptysis, Pleuritic Pain, Sputum, Wheezing, Other Cardiovascular: No: Chest Pain, Palpitations, Orthopnea, Paroxysmal Noc. Dyspnea, Edema, Lt Headedness, Other Gastrointestinal: Abdominal Pain; No: Nausea, Vomiting, Diarrhea, Constipation, Melena, Hematochezia, Other Genitourinary: No Dysuria, No Frequency, No Incontinence, No Hematuria, No Retention, No Other Musculoskeletal: No: other, neck pain, shoulder pain, arm pain, back pain, hand pain, leg pain, foot pain Skin: No: Rash, Lesions, Jaundice, Bruising, Other Neurological: Change in speech, Confusion, Other (Right-sided weakness); No: Weakness, Numbness, Incoordination, Seizures Allergies: Coded Allergies: Evolocumab (Verified Allergy, Intermediate, Hives, 01/03/24) Furosemide (Verified Allergy, Intermediate, Blisters, 01/03/24) Mouse Protein (Verified Allergy, Intermediate, Hives, 01/03/24) Exam Vital Signs Vital Signs Date Time Temp Pulse Resp B/P (MAP) Pulse Ox O2 Delivery O2 Flow Rate FiO2 03/21/25 04:04 99.3 82 21 105/44 (64) 97 99.3 03/20/25 23:45 Room Air* 0 21 General Appearance: Alert, Oriented X3, Cooperative, No acute distress, Other (Hutton catheter in place, sacral area mild erythema noted.) HEENT: PERRLA, EOMI, Mucous membr. moist/pink Respiratory: Clear to auscultation, Normal air movement Cardiovascular: Regular rate, Normal S1, No murmurs Abdominal: Normal bowel sounds, Soft, No tenderness Extremities: No clubbing, No cyanosis, No edema, Other (Right-sided weakness) Skin: No rashes, No breakdown Neuro: Other (Decreased muscle strength right side in compared to left side, speech not clear, gait instability) Psych/Mental Status: Other (Patient was altered during admission) Labs/Xrays Labs Test 03/21/25 01:31 03/21/25 01:00 03/21/25 00:39 03/21/25 00:05 Range/Units Lactic Acid Level 1.7 0.4-2.0 mmol/L Urine Color Davison H Yellow Urine Clarity Ex.turbid Clear Urine pH 6.0 5.0-9.0 Urine Specific [place] 1.025 1.001-1.035 Urine Protein 2+ H Negative Urine Ketones Trace Negative Urine Blood 2+ H Negative /uL Urine Nitrite Negative Negative Urine Bilirubin Negative Negative Urine Urobilinogen 2 H Negative mg/dL Urine Leukocyte Esterase 3+ Negative /uL Urine RBC 140 0 - 4 /hpf Urine WBC Clumps Present None Seen /hpf Urine Microscopic WBC 2850 H 0-5 /HPF Urine Squamous Epithelial Cells Few <5 /hpf Urine Bacteria Mod H None Seen /hpf Urine Mucus Few None Seen Urine Glucose Normal Normal mg/dL Urine Opiates Screen Neg NEGATIVE Urine Fentanyl Screen Neg NEGATIVE Urine Phencyclidine Screen Neg NEGATIVE Urine Amphetamines Screen Neg NEGATIVE Urine Benzodiazepines Screen Neg NEGATIVE Urine Cocaine Screen Neg NEGATIVE Urine Cannabinoids Screen Neg NEGATIVE Troponin I High Sensitivity 12 </=34 ng/L POC Glucose 140 H 70-106 mg/dl Test 03/20/25 23:49 Range/Units White Blood Count 9.5 4.4-10.8 10^3/uL Red Blood Count 4.17 4.0-5.20 10^6/uL Hemoglobin 12.8 12.2-16.2 g/dL Hematocrit 37.7 36.0-46.0 % Mean Corpuscular Volume 90.5 80.0-100.0 fL Mean Corpuscular Hemoglobin 30.6 28.0-32.0 pg Mean Corpuscular Hemoglobin Concent 33.9 32.0-36.0 g/dL Red Cell Distribution Width 14.1 11.8-14.3 % Platelet Count 218 140-450 10^3/uL Mean Platelet Volume 8.0 6.9-10.8 fL Neutrophils (%) (Auto) 86.9 H 37.0-80.0 % Lymphocytes (%) (Auto) 8.1 L 10.0-50.0 % Monocytes (%) (Auto) 4.7 0.0-12.0 % Eosinophils (%) (Auto) 0.1 0.0-7.0 % Basophils (%) (Auto) 0.2 0.0-2.0 % Neutrophils # (Auto) 8.2 1.6-8.6 10 ^3/uL Lymphocytes # (Auto) 0.8 0.4-5.4 10 ^3/uL Monocytes # (Auto) 0.4 0-1.3 10 ^3/uL Eosinophils # (Auto) 0 0-0.8 10 ^3/uL Basophils # (Auto) 0 0-0.2 10 ^3/uL Nucleated Red Blood Cells 0.0 % Prothrombin Time 11.6 9.3-11.8 sec Prothrombin Time INR 1.11 0.9-1.15 Activated Partial Thromboplast Time 27.6 24.5-34.5 SEC D-Dimer, Quantitative 2.19 H 0.0-0.49 mg/L FEU Sodium Level 141 136-145 mmol/L Potassium Level 4.1 3.5-5.1 mmol/L Chloride Level 105 98-107 mmol/L Carbon Dioxide Level 22 20-31 mmol/L Anion Gap 14 5-15 Blood Urea Nitrogen 46 H 9-23 mg/dL Creatinine 2.78 H 0.550-1.02 mg/dL Glomerular Filtration Rate Calc 18 >90 mL/min BUN/Creatinine Ratio 16.5 10.0-20.0 Serum Glucose 133 H 74-106 mg/dL Calcium Level 9.3 8.7-10.4 mg/dL Total Bilirubin 0.6 0.2-1.0 mg/dL Aspartate Amino Transferase (AST) 25 13-40 U/L Alanine Aminotransferase (ALT) 14 7-40 U/L Alkaline Phosphatase 53 46-116 U/L Total Protein 7.1 5.7-8.2 g/dL Albumin 3.9 3.2-4.8 g/dL SEPSIS Sepsis Screen Date sepsis recognized/suspect: Mar 20, 2025 Time Sepsis recognized/suspect: 2344 Recent Procedure: No On Antibiotic Therapy: No Respiratory Rate >20: No Heart Rate >90: Yes Temp<36 C (96.8 F) or >38.3 C: Yes SBP <90 or MAP <65 mmHG: No New Acute Mental Status Change: Yes Is the patient on CPAP, BIPAP,: No Physician Orders Drug Screen (03/20/25 23:27) Ct Head Cva (03/20/25 23:27) Blood Culture (03/20/25 23:58) Insert Hutton Catheter QSHIFT (03/21/25 00:11) Electrocardigram (03/21/25 00:43) Bilat Lower Dvt (03/21/25 03:38) Admit (03/21/25 03:53) Code Status (03/21/25 03:53) Full Liq Diet (03/21/25 Breakfast) 0.9% Ns 1000 Ml (03/21/25 04:00) Ondansetron Hcl (Zofran) (03/21/25 04:00) Acetaminophen Tablet (Tylenol Tablet) (03/21/25 04:00) Notify Of Changes From Base (03/21/25 03:53) Meropenem 500mg Q12h([id number] (03/21/25 10:00) Meropenem 1gm Ivpb X One (03/21/25 04:00) Urine Bacterial Culture (03/21/25 03:53) Aspirin Enteric Coated Tablet (Ecotrin E (03/21/25 10:00) Atorvastatin (Lipitor) (03/21/25 22:00) Glucose Blood (Accu-Chek Comfort Curve T (03/21/25 07:00) Mild Sliding Scale (03/21/25 07:00) Dextrose 50% Syringe (03/21/25 04:00) Vital Signs Date Time Temp Pulse Resp B/P (MAP) Pulse Ox O2 Delivery O2 Flow Rate FiO2 03/21/25 04:04 99.3 82 21 105/44 (64) 97 99.3 03/21/25 02:00 84 21 119/43 (68) 94 03/20/25 23:49 102 03/20/25 23:47 99.0 106 19 126/40 (68) 97 99.0 03/20/25 23:45 106 19 97 Room Air* 0 21 03/20/25 23:15 99.2 92 16 107/57 98 99.2 Laboratory Tests Test 03/20/25 23:49 03/21/25 01:31 Lactic Acid Level 2.3 mmol/L (0.4-2.0) *H 1.7 mmol/L (0.4-2.0) White Blood Count 9.5 10^3/uL (4.4-10.8) Medications Medications Dose Ordered Sig/Jatin Route Start Time Stop Time Status Last Admin Dose Admin Acetaminophen 1,000 mg ONCE ONCE IV 03/21/25 00:15 03/21/25 00:16 DC 03/21/25 00:19 1,000 MG Ceftriaxone Sodium 50 ml @ 100 mls/hr ONCE ONCE IV 03/21/25 00:45 03/21/25 01:14 DC 03/21/25 01:06 100 MLS/HR Sodium Chloride 2,000 ml @ 1,000 mls/hr Q2H ONCE IV 03/21/25 00:45 03/21/25 02:44 DC 03/21/25 01:06 1,000 MLS/HR Vancomycin HCl 250 ml @ 250 mls/hr ONCE ONCE IV 03/21/25 00:45 03/21/25 01:44 DC 03/21/25 01:21 250 MLS/HR Assessment/Plan Assessment/Plan Acute metabolic encephalopathy due to sepsis secondary to urinary tract infection History of stroke 1 year ago with right-sided weakness Bed-bound since stroke Vital signs: Temperature 99.2, saturation 96% in room air. In ER patient received vancomycin, ceftriaxone, NSS, acetaminophen. No leukocytosis but left-shifted Lactic acid: 2.3, repeat lactic acid 1.7 Troponin: 14> 12 CT head: CT head: Chronic infarct within the left parietal lobe, coronary radiata/basal ganglia and right parietal lobe. No acute intracranial hemorrhage or mass effect. There are global involutional changes with compensatory prominence of the ventricles and sulci. Patchy periventricular and subcortical white matter hypoattenuation is nonspecific but may be related to small vessel ischemic disease. Aspirin Atorvastatin IVF Blood culture Doppler lower extremity due to increased D-dimer. 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 More than 29 minute spent with patient. Full code status. NOK( brother-Stephen) in bedside currently wants full code, will inform if code status decision changes. Case discussed with Dr. Monroe Plan discussed with: Patient, Other (Nurse, brother-Stephen) My Orders Orders - DON CARRERO RESIDENT Procedure Category Date Status Time Bilat Lower Dvt US 03/21/25 Logged 03:38 Admit ADMIT 03/21/25 Verified 03:53 Code Status CODE 03/21/25 Verified 03:53 Full Liq Diet DIET 03/21/25 Verified Breakfast 0.9% Ns 1000 Ml PHA 03/21/25 Verified 04:00 Ondansetron Hcl PHA 03/21/25 Verified (Zofran) 04:00 Acetaminophen Tablet PHA 03/21/25 Verified (Tylenol Tablet) 04:00 Notify Md Of Changes ANDRE 03/21/25 Verified From Base 03:53 Meropenem 500mg PHA 03/21/25 Verified Q12h([id number] 10:00 Meropenem 1gm Ivpb X PHA 03/21/25 Verified ONE 04:00 Urine Bacterial LYNNE 03/21/25 Verified Culture 03:53 Aspirin Enteric PHA 03/21/25 Verified Coated Tablet 10:00 Atorvastatin (Lipitor) PHA 03/21/25 Verified 22:00 Glucose Blood PHA 03/21/25 Verified (Accu-Chek Comfort 07:00 Mild Sliding Scale PHA 03/21/25 Verified 07:00 Dextrose 50% Syringe PHA 03/21/25 Verified 04:00 Visit Coding STANDARD RES Billing Provider: LAURIE MONROE MD Date of Service if different f: Mar 21, 2025 Common Visit Codes: 67916-[id number] INP/OBS CARE (HIGH) Secondary Visit Codes: 34619-[id number] CARE PLAN 30 MINUTES DON CARRERO RESIDENT Mar 21, 2025 04:08
[2025-03-21] MEDS: MEROPENEM 500MG IVPB 50 ML IV SCH (04:24)
[2025-03-21] MEDS: SODIUM CHLORIDE 0.9% 1,000 ML IV SCH (04:24)
[2025-03-21 04:31] LABS: Barbiturate Scree,Urine Neg (NEGATIVE)
[2025-03-21] MEDS: ACCU-CHEK COMFORT CURVE STRIP VI SCH (06:22)
[2025-03-21] MEDS: InsuLIN REG 1unit/0.01ml Soln (100units/ml) SC SCH (06:22)
[2025-03-21] MEDS: HEPARIN SODIUM (PORCINE) 5000 UNITS/ML 1ML VIAL SC SCH (06:23)
[2025-03-21] MEDS: ACETAMINOPHEN 325 MG TAB PO PRN (06:23)
--- NOTE | 2025-03-21 07:01 | DVH ---
Bilateral lower extremity venous duplex Clinical History: Elevated d-dimer Comparison: US BILAT LOWER DVT on DOS: 01/16/24. Findings: Duplex Doppler evaluation of the deep venous systems of both lower extremities from the common femoral veins to the popliteal veins including color Doppler and spectral/pulsed waveform analysis was performed. RIGHT SIDE: The common femoral vein demonstrates appropriate compressibility and waveform variability. There is compressibility/patency of the great saphenous vein at the proximal thigh. The femoral vein demonstrates appropriate compressibility and waveform variability. The deep femoral vein demonstrates appropriate compressibility and waveform variability. The popliteal vein demonstrates appropriate compressibility and waveform variability. There is normal compressibility at the tibioperoneal trunk. LEFT SIDE: The common femoral vein demonstrates appropriate compressibility and waveform variability. There is compressibility/patency of the great saphenous vein at the proximal thigh. The femoral vein demonstrates appropriate compressibility and waveform variability. The deep femoral vein demonstrates appropriate compressibility and waveform variability. The popliteal vein demonstrates appropriate compressibility and waveform variability. There is normal compressibility at the tibioperoneal trunk. Impression: 1. No deep venous thrombosis in the bilateral lower extremities.
[2025-03-21 07:05] LABS: Anion Gap 15 (5-15); Potassium 3.7 mmol/L (3.5-5.1); Sodium 142 mmol/L (136-145)
[2025-03-21 07:06] LABS: Calcium 8.9 mg/dL (8.7-10.4)
[2025-03-21 07:08] LABS: Carbon Dioxide 19 mmol/L (20-31); Chloride 108 mmol/L (98-107)
[2025-03-21 07:11] LABS: BUN/Creatinine Ratio 16.1 (10.0-20.0); Blood Urea Nitrogen 44 mg/dL (9-23); Glucose 163 mg/dL (74-106)
[2025-03-21 07:12] LABS: Magnesium 1.8 mg/dL (1.6-2.6)
[2025-03-21 07:25] VITALS: PULSE 94; RESP 22; O2SAT 94
[2025-03-21 07:29] LABS: Hematocrit 33.3 % (36.0-46.0); Hemoglobin 11.2 g/dL (12.2-16.2); Mean Corpuscular Hemoglobin 30.7 pg (28.0-32.0); Mean Corpuscular Volume 91.7 fL (80.0-100.0); Nucleated Red Blood Cells % 0.0 %
[2025-03-21] MEDS: ASPirin-EC 81 mg tab PO SCH (10:40)
--- NOTE | 2025-03-21 12:09 | BSKYNEURO ---
[place] [facility] Note # Demographics Consult Type: Acute Stroke Level 2 (4.5-24 hrs) Patient Location: Emergency Room First Name: Cindy Last Name: Jose Date of : 1955 Age: 70 Gender: Female Facility: [facility] Time of Initial Page (): 03/20/2025 23:32 First Contact with Site (): 03/20/2025 23:35 # HPI History: 70 yo woman brought in by EMS, hx of prior stroke, residural right sided deficits from prior stroke 1 year ago , Staff at her living facility noted worsening mental status , following less commands and less verbal. Last normal 8 hours ago. # Scores Time of exam and NIHSS (): 03/20/2025 23:41 Level of Consciousness 1a: [0] = Alert; keenly responsive LOC Questions 1b: [0] = Answers both questions correctly LOC Commands 1c: [0] = Performs both tasks correctly Best Gaze 2: [0] = Normal Visual 3: [0] = No visual loss Facial Palsy 4: [2] = Partial paralysis Motor Arm Left 5a: [0] = No drift Motor Arm Right 5b: [3] = No effort against gravity Motor Leg Left 6a: [2] = Some effort against gravity Motor Leg Right 6b: [3] = No effort against gravity Limb Ataxia 7: [0] = Absent Sensory 8: [0] = Normal Best Language 9: [1] = Frow-oi-kcmgqvso aphasia Dysarthria 10: [1] = Eamk-ys-muelgkqr dysarthria Extinction and Inattention 11: [0] = No abnormality NIHSS Total: 12 # Data Head CT: - no bleed # Assessment Impression: - Altered Mental Status hx of prior stroke with residual right sided symptoms suspect recrudescence of prior stroke syndrome vs new stroke. # Plan Thrombolytic/Intervention: NOT IV Thrombolysis or IA Intervention candidate Thrombolytic Exclusion: > 4.5 hours Intraarterial Exclusion: - no large vessel occlusion (LVO) Target Blood Pressure: SBP < 180 Labs: - CBC - comprehensive metabolic panel - lipid panel - TSH - ua - troponin - urine drug screen Diagnostic Test: - echo with bubble study Therapy/Evaluation: - speech/swallow consultation Medication: - aspirin 325 mg PO daily Other: - If patient has any neurological deterioration please call me back immediately - I have discussed my recommendations with the referring provider Additional Recommendations: metabolic/infectious work up mri brain if no etiology disocvered. Disposition: admit # Logistics Attestation of consult completion: The patient is located at: [facility]. Facility staff participated in the visit. I performed this telemedicine visit from my offsite office utilizing interactive 2 way audio and visual telecommunication technology at the request of the onsite emergency room provider. Total time spent in telemedicine encounter: I spent 33 minutes reviewing clinical data and/or imaging, obtaining history, examining the patient, communicating with the onsite care team, and in preparation of this report. # Demographics First Name: Cindy Last Name: Jose Facility: [facility] Yes PARIJessicaJACKIE MONZON Mar 21, 2025 12:09
[2025-03-21 15:05] VITALS: BP 113/55; PULSE 84; RESP 16; TEMP 97.3; O2SAT 99
[2025-03-21 15:28] VITALS: BP 113/55; PULSE 84; RESP 16; TEMP 97.3; O2SAT 99
[2025-03-21 16:52] VITALS: BP 115/61; PULSE 71; RESP 18; TEMP 97.8; O2SAT 96
[2025-03-21 20:00] VITALS: PULSE 85; RESP 19; O2SAT 98
[2025-03-21 21:00] VITALS: BP 114/53; PULSE 85; RESP 19; TEMP 99.8; O2SAT 98
[2025-03-21] MEDS: ATORVASTATIN 20 MG TAB PO SCH (22:53)
[2025-03-22] VITALS (9 sets, daily range): BP systolic 92–112; BP diastolic 45–59; PULSE 85–120; RESP 18–20; TEMP 97.5–99.8; O2SAT 94–97
--- NOTE | 2025-03-22 10:17 | ECG ---
[facility] Test Date: 2025-03-20 Test Time: 23:49:19 Pat Name: CHIQUI WEAVER Department: ED Room: 0278 A Gender: F [employer]: : 1955 Requested By: DELMAR CARNES* Order Number: [id number] Reading MD: David Gutierrez Measurements Intervals [place] Rate: 102 P: 7 AK: 137 QRS: 72 QRSD: 127 T: 0 QT: 363 QTc: 473 Interpretive Statements Sinus tachycardia Right bundle branch block Electronically Signed On 03-28-2025 18:41:28 PST by David Gutierrez Please click the below link to view image of tracing.
--- NOTE | 2025-03-22 16:00 | DVHPN2 ---
Subjective seen in bed, more alert today Reviewed: H&P Changes from previous H/P or p: No Changes Eyes: No Pain, No Vision change, No Conjunctivae inflammation, No Eyelid inflammation, No Other, No Redness ENT: No Ear pain, No Ear discharge, No Nose pain, No Nose discharge, No Nose congestion, No Mouth pain, No Mouth swelling, No Throat pain, No Throat swelling, No Other Cardiovascular: No Chest Pain, No Palpitations, No Orthopnea, No Paroxysmal Noc. Dyspnea, No Edema, No Lt Headedness, No Other Respiratory: No Cough, No Dry, No Shortness of breath, No SOB with excertion, No Wheezing, No Hemoptysis, No Pleuritic Pain, No Sputum, No Other Gastrointestinal: No Nausea, No Vomiting; Abdominal Pain; No Diarrhea, No Constipation, No Melena, No Hematochezia, No Other Genitourinary: No Dysuria, No Frequency, No Incontinence, No Hematuria, No Retention, No Other Musculoskeletal: No other, No neck pain, No shoulder pain, No arm pain, No back pain, No hand pain, No leg pain, No foot pain Skin: No Rash, No Lesions, No Jaundice, No Bruising, No Other Objective Vitals Vital Signs Date Time Temp Pulse Resp B/P (MAP) Pulse Ox O2 Delivery O2 Flow Rate FiO2 03/22/25 12:34 98.5 113 18 112/52 (72) 96 98.5 03/21/25 20:00 Room Air* 0 21 Intake/Output Intake and Output 03/22/25 05:00 Intake Total 1450 ml Output Total 1180 ml Balance 270 ml Intake Oral 500 ml IV Total 950 ml Output Urine Total 1180 ml General Appearance: Alert Abdomen: Normal bowel sounds Neuro: Other (Has right upper and lowe extremity and dysarthria at baseline, more alert today) Medications Current Medications Medications Dose Ordered Sig/Jatin Route Start Time Stop Time Status Last Admin Dose Admin Sodium Chloride 1,000 ml @ 100 mls/hr Q10H IV 03/21/25 04:00 03/22/25 04:55 100 MLS/HR Ondansetron HCl 4 mg Q4HP PRN IV 03/21/25 04:00 Acetaminophen 650 mg Q6HP PRN PO 03/21/25 04:00 03/21/25 06:23 650 MG Meropenem 50 ml @ 17 mls/hr Q12H IV 03/21/25 04:30 03/22/25 15:48 17 MLS/HR Aspirin 81 mg DAILY PO 03/21/25 10:00 03/21/25 10:40 81 MG Atorvastatin Calcium 40 mg HS PO 03/21/25 22:00 Hold Diagnostic Test (Pha) 1 strip ACHS 03/21/25 07:00 03/22/25 15:56 1 STRIP Insulin Human Regular ACHS SC 03/21/25 07:00 03/21/25 12:02 2 UNITS Dextrose 50 ml UD PRN IV 03/21/25 04:00 Heparin Sodium (Porcine) 5,000 units Q8HR SC 03/21/25 06:00 03/22/25 14:13 5,000 UNITS Laboratory Results Laboratory Tests 03/21/25 01:31 03/21/25 07:08 Urinalysis Test 03/21/25 01:00 Urine Color [place] (Yellow) H Urine Clarity Ex.turbid (Clear) Urine pH 6.0 (5.0-9.0) Urine Specific [place] 1.025 (1.001-1.035) Urine Protein 2+ (Negative) H Urine Ketones Trace (Negative) Urine Blood 2+ /uL (Negative) H Urine Nitrite Negative (Negative) Urine Bilirubin Negative (Negative) Urine Urobilinogen 2 mg/dL (Negative) H Urine Leukocyte Esterase 3+ /uL (Negative) Urine RBC 140 /hpf (0 - 4) Urine WBC Clumps Present /hpf (None Seen) Urine Microscopic WBC 2850 /HPF (0-5) H Urine Squamous Epithelial Cells Few /hpf (<5) Urine Bacteria Mod /hpf (None Seen) H Urine Mucus Few (None Seen) Urine Glucose Normal mg/dL (Normal) Microbiology Microbiology Date/Time Source Procedure Growth Status 03/21/25 01:00 Voided Urine Urine Culture - Preliminary Resulted 03/20/25 23:56 Blood Blood Culture - Preliminary Resulted Assessment/Plan Assessment/Plan Acute metabolic encephalopathy due to sepsis secondary to urinary tract infection History of stroke 1 year ago with right-sided weakness Bed-bound since stroke Vital signs: Temperature 99.2, saturation 96% in room air. In ER patient received vancomycin, ceftriaxone, NSS, acetaminophen. No leukocytosis but left-shifted Lactic acid: 2.3, repeat lactic acid 1.7 Troponin: 14> 12 CT head: CT head: Chronic infarct within the left parietal lobe, coronary radiata/basal ganglia and right parietal lobe. No acute intracranial hemorrhage or mass effect. There are global involutional changes with compensatory prominence of the ventricles and sulci. Patchy periventricular and subcortical white matter hypoattenuation is nonspecific but may be related to small vessel ischemic disease. Aspirin Atorvastatin IVF Blood culture Doppler lower extremity due to increased D-dimer. 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 Creatinine 2.78, GFR 18 IVF Avoid nephrotoxic drugs Hutton catheter in Type 2 diabetes mellitus with neuropathy Hypertensive kidney disease Mixed hyperlipidemia Home medication metformin, sitagliptin, empagliflozin Insulin sliding scale Hemoglobin A1c Monitor blood sugar Atorvastatin Home medication amlodipine, HCTZ 03/22 Reviewed neurology notes, no MRI recommended encephalopathy most likely metabolic Plan discussed with: Other (nephew) My Orders Orders - RAMIRO MAGALLON MD Procedure Category Date Status Time Pt Request For Service PT 03/22/25 Logged 12:59 Date of Service: Mar 22, 2025 Billing Provider: RAMIRO MAGALLON MD Common Visit Codes: [id number] INP/OBS CARE(HIGH) RAMIRO MAGALLON MD Mar 22, 2025 16:00
[2025-03-23] VITALS (7 sets, daily range): BP systolic 87–114; BP diastolic 36–63; PULSE 74–83; RESP 14–20; TEMP 97.3–98.2; O2SAT 96–97
[2025-03-23] MEDS: MIDODRINE HCL 10 MG TAB PO ONE (01:31)
[2025-03-23 07:15] LABS: Hematocrit 28.2 % (36.0-46.0); Hemoglobin 9.6 g/dL (12.2-16.2); Mean Corpuscular Hemoglobin 30.8 pg (28.0-32.0); Mean Corpuscular Volume 90.6 fL (80.0-100.0); Nucleated Red Blood Cells % 0.0 %
[2025-03-23 07:25] LABS: Potassium 3.5 mmol/L (3.5-5.1); Sodium 142 mmol/L (136-145)
[2025-03-23 07:26] LABS: Anion Gap 11 (5-15)
[2025-03-23 07:30] LABS: Calcium 8.2 mg/dL (8.7-10.4); Carbon Dioxide 19 mmol/L (20-31); Chloride 112 mmol/L (98-107)
[2025-03-23 07:32] LABS: BUN/Creatinine Ratio 17.5 (10.0-20.0); Glucose 80 mg/dL (74-106)
[2025-03-23 07:34] LABS: Blood Urea Nitrogen 39 mg/dL (9-23)
[2025-03-23] MEDS ORDERED: BACDST PO (10:23)
[2025-03-23] MEDS: MIDODRINE HCL 10 MG TAB PO SCH (13:17)
--- NOTE | 2025-03-23 14:42 | DVHDS2 ---
Discharge Summary Date of Admission Mar 21, 2025 at 03:53 Date of Discharge: Mar 23, 2025 Labs/Diagnostic Data: Laboratory Results Test 03/23/25 10:31 03/23/25 05:39 03/21/25 07:08 03/21/25 01:31 POC Glucose 124 mg/dl (70-106) White Blood Count 10.4 10^3/uL (4.4-10.8) Red Blood Count 3.11 10^6/uL (4.0-5.20) Hemoglobin 9.6 g/dL (12.2-16.2) Hematocrit 28.2 % (36.0-46.0) Mean Corpuscular Volume 90.6 fL (80.0-100.0) Mean Corpuscular Hemoglobin 30.8 pg (28.0-32.0) Mean Corpuscular Hemoglobin Concent 34.0 g/dL (32.0-36.0) Red Cell Distribution Width 14.3 % (11.8-14.3) Platelet Count 143 10^3/uL (140-450) Mean Platelet Volume 9.0 fL (6.9-10.8) Neutrophils (%) (Auto) 91.0 % (37.0-80.0) Lymphocytes (%) (Auto) 4.9 % (10.0-50.0) Monocytes (%) (Auto) 3.5 % (0.0-12.0) Eosinophils (%) (Auto) 0.4 % (0.0-7.0) Basophils (%) (Auto) 0.2 % (0.0-2.0) Neutrophils # (Auto) 9.5 10 ^3/uL (1.6-8.6) Lymphocytes # (Auto) 0.5 10 ^3/uL (0.4-5.4) Monocytes # (Auto) 0.4 10 ^3/uL (0-1.3) Eosinophils # (Auto) 0 10 ^3/uL (0-0.8) Basophils # (Auto) 0 10 ^3/uL (0-0.2) Nucleated Red Blood Cells 0.0 % Sodium Level 142 mmol/L (136-145) Potassium Level 3.5 mmol/L (3.5-5.1) Chloride Level 112 mmol/L (98-107) Carbon Dioxide Level 19 mmol/L (20-31) Anion Gap 11 (5-15) Blood Urea Nitrogen 39 mg/dL (9-23) Creatinine 2.23 mg/dL (0.550-1.02) Glomerular Filtration Rate Calc 23 mL/min (>90) BUN/Creatinine Ratio 17.5 (10.0-20.0) Serum Glucose 80 mg/dL (74-106) Calcium Level 8.2 mg/dL (8.7-10.4) Hemoglobin A1c 5.3 % A1C (<5.7) Vitamin B12 Level 281 pg/mL (211-911) Vitamin D 25-Hydroxy 38.7 ng/mL (30.0-100) Lactic Acid Level 1.7 mmol/L (0.4-2.0) Phosphorus Level 3.3 mg/dL (2.4-5.1) Magnesium Level 1.8 mg/dL (1.6-2.6) Thyroid Stimulating Hormone (TSH) 0.21 uIU/mL (0.55-4.78) Test 03/21/25 01:00 03/21/25 00:39 03/20/25 23:49 Urine Color [place] (Yellow) Urine Clarity Ex.turbid (Clear) Urine pH 6.0 (5.0-9.0) Urine Specific [place] 1.025 (1.001-1.035) Urine Protein 2+ (Negative) Urine Ketones Trace (Negative) Urine Blood 2+ /uL (Negative) Urine Nitrite Negative (Negative) Urine Bilirubin Negative (Negative) Urine Urobilinogen 2 mg/dL (Negative) Urine Leukocyte Esterase 3+ /uL (Negative) Urine RBC 140 /hpf (0 - 4) Urine WBC Clumps Present /hpf (None Seen) Urine Microscopic WBC 2850 /HPF (0-5) Urine Squamous Epithelial Cells Few /hpf (<5) Urine Bacteria Mod /hpf (None Seen) Urine Mucus Few (None Seen) Urine Glucose Normal mg/dL (Normal) Urine Opiates Screen Neg (NEGATIVE) Urine Fentanyl Screen Neg (NEGATIVE) Urine Barbiturates Screen Neg (NEGATIVE) Urine Phencyclidine Screen Neg (NEGATIVE) Urine Amphetamines Screen Neg (NEGATIVE) Urine Benzodiazepines Screen Neg (NEGATIVE) Urine Cocaine Screen Neg (NEGATIVE) Urine Cannabinoids Screen Neg (NEGATIVE) Troponin I High Sensitivity 12 ng/L (</=34) Prothrombin Time 11.6 sec (9.3-11.8) Prothrombin Time INR 1.11 (0.9-1.15) Activated Partial Thromboplast Time 27.6 SEC (24.5-34.5) D-Dimer, Quantitative 2.19 mg/L FEU (0.0-0.49) Total Bilirubin 0.6 mg/dL (0.2-1.0) Aspartate Amino Transferase (AST) 25 U/L (13-40) Alanine Aminotransferase (ALT) 14 U/L (7-40) Alkaline Phosphatase 53 U/L (46-116) Total Protein 7.1 g/dL (5.7-8.2) Albumin 3.9 g/dL (3.2-4.8) Other Laboratory Tests 03/23/25 05:39 Brief Hx & Hospital Course: This is a 70-year-old female with past medical history of hypertension, DVT, HLD, dm 2, insomnia depression brought from [facility] due to nursing staff concern of stroke. Patient history of stroke 1 year ago with right-sided weakness and placed hospice care but re-evaluated approximately 6 months ago and revoked hospice. As per EMS record, [facility] staff suddenly noticed patient not talking or responding in verbal command 8 hour before admission. No history of fall or trauma. Patient was bed-bound since her last stroke and on physical therapy. During evaluation in ER, brother(Lucas) in bedside reported patient current condition in her baseline. Patient follow verbal command but speech not clear which is not new. Patient received IV fluid and antibiotic in ER. Currently patient denies any SOB, chest pain, headache, diarrhea or any other acute distress. Last admission on 01/18/2024: CT head showed chronic left basal ganglia and right occipital parietal region infarct. CT chest showed pulmonary vascular congestion and atelectasis. History of DVT, was on Eliquis 2.5 mg b.i.d. at home according to our record. Neurology consult on January 18, 2024 recommended continue aspirin Lipitor and Lovenox. Encephalopathy due to UTI and back to baseline no further workup Condition at Discharge: Good Final Diagnosis/Problems List UTI acute metabolic encephalopathy Discharge Disposition: [facility] Facility Discharge Instruct/Medications Diet: Regular Activity: No Restrictions, As Tolerated Follow Up/Referral: PCP in 7 days Medications: same home medications Scheduled Amlodipine Benzoate (Katerzia), 5 MG PO DAILY, (Reported) Apixaban Base (Eliquis), 2.5 MG PO BID, (Reported) Aspirin (Aspirin Low Dose), 81 MG PO DAILY Atorvastatin Calcium (Atorvastatin Calcium), 40 MG PO HS Cefpodoxime Proxetil (Cefpodoxime Proxetil), 1 TAB PO BID Empagliflozin (Jardiance), 10 MG PO DAILY, (Reported) Fenofibrate (Fenofibrate), 48 MG PO DAILY, (Reported) Hydrochlorothiazide (Hydrochlorothiazide), 12.5 MG PO DAILY, (Reported) Metformin Hydrochloride (Metformin Hcl), 500 MG PO DAILY, (Reported) Sulfamethoxazole W/Trimethopri (Bactrim Ds Tablet), 1 TAB PO BID Miscellaneous Medications Ibuprofen (Ibuprofen), 400 MG PO, (Reported) Sitagliptin Phosphate (Januvia), 25 MG PO, (Reported) Trazodone Hcl (Trazodone Hcl), 50 MG PO, (Reported) Discharge Statement: "Patient was advised to return to the ER or call 911 if any headaches, dizziness, shortness of breath, chest pain, abdominal pain, bleeding, fevers, or worsening of medical condition. Patient was counseled about treatment plan, medications, possible side effects, patientverbalized understanding. All questions were answered to the best of my ability. This discharge took greater then 30 minutes in planning, reviewing documentation, counseling the patient, and discussing with other team members." ASSESSMENT ASSESSMENT Assessment UTI acute metabolic encephalopathy Date of Service: Mar 23, 2025 Billing Provider: RAMIRO MAGALLON MD Common Visit Codes: [id number] DISCH DAY >30min RAMIRO MAGALLON MD Mar 23, 2025 14:42
== END 2025-03-23 14:57 | disposition home or self-care (01) | DRG 871 ==
LOC: EDBD 23:15 → ER 23:15 → OVERFLOW 03-21 03:53 → WEST WING 03-21 14:55
PROVIDERS: ADMIT Hospitalist; ATTEND Hospitalist
DX: A41.9 Sepsis, unspecified organism (principal); G93.41 Metabolic encephalopathy; N17.0 Acute kidney failure with tubular necrosis; N18.6 End stage renal disease; N39.0 Urinary tract infection, site not specified; R65.20 Severe sepsis without septic shock; Z79.01 Long term (current) use of anticoagulants; Z79.02 Long term (current) use of antithrombotics/antiplatelets; I69.351 Hemiplegia and hemiparesis following cerebral infarction affecting right dominant side; I12.9 Hypertensive chronic kidney disease with stage 1 through stage 4 chronic kidney disease, or unspecified chronic kidney disease; E11.22 Type 2 diabetes mellitus with diabetic chronic kidney disease; F32.A Depression, unspecified; J98.11 Atelectasis; F17.210 Nicotine dependence, cigarettes, uncomplicated; G47.00 Insomnia, unspecified; N18.9 Chronic kidney disease, unspecified; E78.2 Mixed hyperlipidemia; E11.40 Type 2 diabetes mellitus with diabetic neuropathy, unspecified; Z90.710 Acquired absence of both cervix and uterus; Z86.718 Personal history of other venous thrombosis and embolism; Z87.440 Personal history of urinary (tract) infections; Z90.49 Acquired absence of other specified parts of digestive tract; Z74.01 Bed confinement status; Z79.82 Long term (current) use of aspirin; Z79.899 Other long term (current) drug therapy; Z79.84 Long term (current) use of oral hypoglycemic drugs; Z88.8 Allergy status to other drugs, medicaments and biological substances; Z91.048 Other nonmedicinal substance allergy status
CPT/HCPCS: 36415; 80048; 80053; 80307; 81001; 82306; 82607; 82962; 83036; 83605; 83735; 84100; 84443; 84484; 85025; 85379; 85610; 85730; 87040; 87077; 87081; 87086; 87088; 87186; 93005; 93970; 97110; 97163; 99291; G0378; J0131; J1815; J2185